=== PATIENT | male | born 1995 | race Caucasian/White ===

== ENCOUNTER 2017-06-16 19:57 | Emergency (ER) | payer OTHER ==
--- NOTE | 2017-06-16 21:55 | ED ---
Throat Pain/Nasal Congestion - HPI Summary HPI Summary: 22 male presents to ED with complaints of sore throat, cough and earlier feeling like he had something stuck in his throat began this morning upon waking up. Had minor sore throat yesterday. Denies productive cough. No nasal congestion, sinus congestion or ear pain. Denies fatigue, fever/chills, n/v/d, abdominal pain, chest pain and trouble breathing. Denies difficulty swallowing, it just hurts. Has taken cough medication earlier today which gave him some relief. Denies any other complaints. No history of mono. No known sick contacts. No PMHx. FB sensation in throat has since resolved. No history of choking or FB ingestion. - History of Current Complaint Chief Complaint: EDThroatPain Time Seen by Provider: 06/16/17 21:17 Hx Obtained From: Patient Onset/Duration: Sudden Onset, Lasting Days - 1-2 Severity: Mild Associated Signs And Symptoms: Positive: Dysphagia Cough: Nonproductive - Allergies/Home Medications Allergies/Adverse Reactions: Allergies Allergy/AdvReac Type Severity Reaction Status Date / Time No Known Allergies Allergy Verified 06/16/17 20:01 PMH/Surg Hx/FS Hx/Imm Hx Endocrine/Hematology History: Denies: Hx Anticoagulant Therapy Cardiovascular History: Denies: Hx Hypertension Respiratory History: Denies: Hx Asthma - Surgical History Surgery Procedure, Year, and Place: n/a - Immunization History Immunizations Up to Date: Yes Infectious Disease History: No Infectious Disease History: Denies: Traveled Outside the [place] in Last 30 Days - Family History Known Family History: Positive: None - Social History Alcohol Use: Occasionally Substance Use Type: Reports: None Smoking Status (MU): Never Smoked Tobacco Review of Systems Constitutional: Negative Positive: Sore Throat Cardiovascular: Negative Positive: Cough Gastrointestinal: Negative Skin: Negative All Other Systems Reviewed And Are Negative: Yes Physical Exam Triage Information Reviewed: Yes Vital Signs On Initial Exam: Initial Vitals Temp Pulse Resp BP Pulse Ox 99.3 F 83 16 143/64 99 06/16/17 20:01 06/16/17 20:01 06/16/17 20:01 06/16/17 20:01 06/16/17 20:01 Vital Signs Reviewed: Yes Appearance: Positive: Well-Appearing, No Pain Distress, Well-Nourished Skin: Positive: Warm, Skin Color Reflects Adequate Perfusion, Dry. Negative: Cold, Cyanosis @, Pale, Erythema @ Head/Face: Positive: Normal Head/Face Inspection Eyes: Positive: Conjunctiva Clear ENT: Positive: Hearing grossly normal, Pharyngeal erythema, TMs normal, Tonsillar swelling, Uvula midline - airway patent, no sign of peritonsillar abscess. Negative: Nasal congestion, Nasal drainage, Tonsillar exudate Dental: Negative: Percussion Tenderness @ Neck: Positive: Supple, Nontender, No Lymphadenopathy Respiratory/Lung Sounds: Positive: Clear to Auscultation, Breath Sounds Present. Negative: Rales, Rhonchi, Wheezes Cardiovascular: Positive: Normal, RRR, Pulses are Symmetrical in both Upper and Lower Extremities. Negative: Murmur, Rub Abdomen Description: Positive: Nontender, Soft Bowel Sounds: Positive: Present Musculoskeletal: Positive: Normal, Strength/ROM Intact Neurological: Positive: Normal, Sensory/Motor Intact, Alert, Oriented to Person Place, Time Diagnostics - Vital Signs Vital Signs Temp Pulse Resp BP Pulse Ox 06/16/17 20:01 99.3 F 83 16 143/64 99 - Laboratory Lab Statement: Any lab studies that have been ordered have been reviewed, and results considered in the medical decision making process. EENT Course/Dx - Course Course Of Treatment: rapid flu and strep obtained and negative. appears to be suffering from a viral URI/pharyngitis. will treat symptomatically at this time as no concern for bacterial at this time. normal vitals and PE other than phayrngeal erythema. No other complaints at this time. Follow up [facility]. Aware of worsening signs and symptoms. patient agrees and understands plan. Increase fluid intake, salt water gargles, ibuprofen and chloraseptic spray. - Differential Diagnoses Differential Diagnoses: Pharyngitis, URI/Bronchitis - Diagnoses Provider Diagnoses: URI (upper respiratory infection), Pharyngitis Discharge - Discharge Plan Condition: Stable Disposition: HOME Patient Education Materials: Pharyngitis (ED), Upper Respiratory Infection (ED) Referrals: [facility] [Provider Group] Additional Instructions: Take ibuprofen to help with discomfort, inflammation and fever. Increase fluid intake. Get plenty of rest. Salt water gargles. Chloraseptic spray sold over the counter to help soothe sore throat. Recommend drinking tea with honey. Wash hands frequently and cover mouth when coughing. Follow up with PCP. Any new or worsening symptoms please seek medical attention promptly.
[2017-06-16 22:48] VITALS: BP 146/85
== END 2017-06-16 22:48 | disposition home or self-care (01) ==
LOC: ED 19:57
DX: J06.9 Acute upper respiratory infection, unspecified (principal); J02.9 Acute pharyngitis, unspecified
CPT/HCPCS: 87502; 87651; 99282

== ENCOUNTER → 2017-10-10 | Emergency (ER) | payer OTHER ==
--- NOTE | 2017-10-15 06:09 | ED ---
Lois Hyman Nilda, scribed for Karlos Velasquez MD on 10/10/17 at 0511 . Psychiatric Complaint - HPI Summary HPI Summary: This patient is a 22 year old M BIBA s/p acute anxiety attack minutes ago. Pt states 20 mins before ambulance arrived pt experienced sharp CP, SOB, tingling in hands, and numbness around lip, which have all resolved. Pt notes similar episode 1 month ago though today's episode was more severe. Patient reports recent decreased sleep and increased caffeine intake. Pt denies recent injury. Medications include Klonopin as needed for anxiety. Pt took 2 Klonopin today when panic attack occurred. Symptoms aggravated by stress (final exams at school ). - History Of Current Complaint Time Seen by Provider: 10/10/17 03:21 Hx Obtained From: Patient Onset/Duration: Sudden Onset, Lasting Minutes, Resolved Timing: Constant Severity Currently: None Character: Anxious Aggravating Factor(s): Recent Stress Alleviating Factor(s): Medication - Klonopin Associated Signs And Symptoms: Positive: Sleep Disturbance Related History: Positive For: Prior Psychiatric Issues Recent Stressor(s): school - Allergies/Home Medications Allergies/Adverse Reactions: Allergies Allergy/AdvReac Type Severity Reaction Status Date / Time No Known Allergies Allergy Verified 06/16/17 20:01 PMH/Surg Hx/FS Hx/Imm Hx Endocrine/Hematology History: Denies: Hx Anticoagulant Therapy Cardiovascular History: Denies: Hx Hypertension Respiratory History: Denies: Hx Asthma Psychiatric History: Reports: Hx Anxiety - Surgical History Surgery Procedure, Year, and Place: n/a Infectious Disease History: Denies: Traveled Outside the [place] in Last 30 Days - Family History Known Family History: Positive: Other - negative anxiety Negative: Cardiac Disease - Social History Occupation: Student Alcohol Use: Occasionally Substance Use Type: Reports: None Smoking Status (MU): Never Smoked Tobacco Review of Systems Positive: Chest Pain - resolved Positive: Shortness Of Breath - resolved Neurological: Other - decreased sleep Positive: Paresthesia - hands, resolved, Numbness - lips, resolved Positive: Anxious All Other Systems Reviewed And Are Negative: Yes Physical Exam - Summary Physical Exam Summary: Appearance: Well appearing, no pain distress Skin: warm, dry, reflects adequate perfusion Head/face: normal Eyes: EOMI, MICHELLE ENT: normal Neck: supple, non-tender Respiratory: CTA, breath sounds present Cardiovascular: RRR, pulses symmetrical Abdomen: non-tender, soft Bowel Sounds: present Musculoskeletal: normal, strength/ROM intact Neuro: normal, sensory motor intact, A&Ox3 Triage Information Reviewed: Yes Vital Signs Reviewed: Yes Re-Evaluation - Re-Evaluation First Eval Change: Improved Course/Dx - Course Course Of Treatment: abrupt onset of sx, now resolved. Tx symptomatically. - Differential Dx/Clinical Impression Provider Diagnosis: Panic attack Discharge - Sign-Out/Discharge Documenting (check all that apply): Discharge/Admit/Transfer - Discharge Plan Condition: Improved Disposition: HOME Referrals: No Primary Care Phys,NOPCP [Primary Care Provider] - Additional Instructions: pt left prior to discharge instructions - Billing Disposition and Condition Condition: IMPROVED Disposition: HOME The documentation as recorded by the Lois jean Nilda accurately reflects the service I personally performed and the decisions made by , Karlos Velasquez MD.
== END | disposition home or self-care (01) ==
LOC: ED 03:01
DX: F41.0 Panic disorder [episodic paroxysmal anxiety] (principal)
CPT/HCPCS: 99281

== ENCOUNTER 2019-06-22 11:21 | Emergency (ER) | payer OTHER ==
[2019-06-22 12:05] LABS: Influenza B Molecular POSITIVE (Negative)
[2019-06-22] MEDS ORDERED: Ibuprofen TAB* 600 MG PO ONE (12:58)
--- NOTE | 2019-06-22 13:00 | ED ---
Influenza-Like Illness - HPI Summary HPI Summary: Patient is a 24 y/o M presenting to the ED for influenza-like symptoms for the last 2-3 days. Patient notes fever, sore throat, chest pain, nasal congestion, cough, abdominal pain, and nausea. Patient denies vomiting, diarrhea, constipation, dysuria, or hematuria. He took ibuprofen, NyQuil, and Dayquil with some relief. He received an influenza vaccination this season. Any significant PMHx or PSHx is denied. He admits occasional alcohol use, but denies tobacco or drug use. Medications reviewed. Allergies noted. - History of Current Complaint Chief Complaint: EDFluSymptoms Time Seen by Provider: 06/22/19 12:39 Hx Obtained From: Patient Onset/Duration: Sudden Onset, Lasting Days - 2-3 days, Still Present Severity: Moderate Associated Signs & Symptoms: Fever - In vitals, 99.5 F, Cough, Sore Throat, Nasal Congestion - Allergy/Home Medications Allergies/Adverse Reactions: Allergies Allergy/AdvReac Type Severity Reaction Status Date / Time No Known Allergies Allergy Verified 06/22/19 11:36 PMH/Surg Hx/FS Hx/Imm Hx Previously Healthy: Yes Endocrine/Hematology History: Denies: Hx Anticoagulant Therapy, Hx Diabetes Cardiovascular History: Denies: Hx Hypertension Respiratory History: Denies: Hx Asthma Sensory History: Denies: Hx Legally Blind, Hx Deafness Opthamlomology History: Denies: Hx Legally Blind EENT History: Denies: Hx Deafness Psychiatric History: Reports: Hx Anxiety - Surgical History Surgical History: None Surgery Procedure, Year, and Place: n/a Infectious Disease History: No Infectious Disease History: Denies: Traveled Outside the [place] in Last 30 Days - Family History Known Family History: Positive: Other - negative anxiety Negative: Cardiac Disease - Social History Occupation: Student Lives: Alone Alcohol Use: Occasionally Hx Substance Use: No Substance Use Type: Reports: None Hx Tobacco Use: No Smoking Status (MU): Never Smoked Tobacco Review of Systems Positive: Fever - In vitals, 99.5 F Positive: Sore Throat, Other - Positive nasal congestion Positive: Chest Pain Positive: Cough Positive: Abdominal Pain, Nausea. Negative: Vomiting, Diarrhea, Other - Negative constipation Negative: dysuria, hematuria All Other Systems Reviewed And Are Negative: Yes Physical Exam - Summary Physical Exam Summary: Constitutional: Well-developed, Well-nourished, Alert. (-) Distressed Skin: Warm, Dry HENT: Normocephalic; Atraumatic Eyes: Conjunctiva normal Neck: Musculoskeletal ROM normal neck. (-) JVD, (-) Stridor, (-) Tracheal deviation Cardio: Rhythm regular, rate normal, Heart sounds normal; Intact distal pulses; Radial pulses are 2+ and symmetric. (-) Murmur Pulmonary/Chest wall: Effort normal. (-) Respiratory distress, (-) Wheezes, (-) Rales Abd: Soft, (-) tenderness, (-) Distension, (-) Guarding, (-) Rebound Musculoskeletal: (-) Edema Lymph: (-) Cervical adenopathy Neuro: Alert, Oriented x3 Psych: Mood and affect Normal Triage Information Reviewed: Yes Vital Signs On Initial Exam: Initial Vitals Temp Pulse Resp BP Pulse Ox 99.5 F 72 19 130/73 96 06/22/19 11:35 06/22/19 11:35 06/22/19 11:35 06/22/19 11:35 06/22/19 11:35 Vital Signs Reviewed: Yes Procedures - Sedation Patient Received Moderate/Deep Sedation with Procedure: No Diagnostics - Vital Signs Vital Signs Temp Pulse Resp BP Pulse Ox 06/22/19 11:35 99.5 F 72 19 130/73 96 - Laboratory Lab Results: Lab Results 06/22/19 Range/Units 11:34 Influenza A (Rapid) Not Reportable Influenza B (Rapid) Positive A (Negative) Lab Statement: Any lab studies that have been ordered have been reviewed, and results considered in the medical decision making process. - Radiology Chest X-ray Radiology Interpretation Completed By: Radiologist Summary of Radiographic Findings: Chest X-ray IMPRESSION: NO ACTIVE CARDIOPULMONARY DISEASE. Reviewed by Dr. Rodriguez. Re-Evaluation - Re-Evaluation First Eval Re-Evaluation Time: 14:26 Change: Unchanged Comment: At 14:26, patient does not want Tamiflu. Flu Symptom Course/Dx - Course Course Of Treatment: Patient is here with flulike symptoms. Patient does have a cough and chest pain so chest x-ray was ordered which shows no pneumonia. Patient was offered Tamiflu but declined. - Diagnoses Provider Diagnoses: Influenza Discharge ED - Sign-Out/Discharge Documenting (check all that apply): Patient Departure - Discharge Plan Condition: Stable Disposition: HOME Patient Education Materials: Influenza (ED) Forms: *School Release Referrals: [facility] - Richy CROWDER [Z.BUSINESS, APPLICATION, OTHER] - Additional Instructions: PLEASE RETURN TO EMERGENCY DEPARTMENT FOR SEVERE CHEST PAIN, TROUBLE BREATHING, OR ANY NEW OR WORSENING SYMPTOMS. Please follow up with your primary care physician. Please make all follow-ups in 1-3 days unless I advise you otherwise. Take Motrin or Tylenol for pain. - Billing Disposition and Condition Condition: STABLE Disposition: Home - Attestation Statements Document Initiated by Brenda: Yes Documenting Scribe: Olivia Zacarias Provider For Whom Brenda is Documenting (Include Credential): Joseph Rodriguez MD Scribe Attestation: IOlivia, scribed for Joseph Rodriguez MD on 06/22/19 at 1550. Scribe Documentation Reviewed: Yes Provider Attestation: The documentation as recorded by the Olivia jean accurately reflects the service I personally performed and the decisions made by me, Joseph Rodriguez MD Status of Scribe Document: Viewed
[2019-06-22 14:47] VITALS: BP 133/69
== END 2019-06-22 14:46 | disposition home or self-care (01) ==
LOC: ED 11:21
DX: J11.1 Influenza due to unidentified influenza virus with other respiratory manifestations (principal)
CPT/HCPCS: 71046; 99282; A9270-GY

== ENCOUNTER 2019-07-08 03:39 | Emergency (ER) | payer OTHER ==
[2019-07-08] MEDS ORDERED: Ondansetron INJ* 2 MG/ML VIAL IV ONE (03:53)
[2019-07-08] MEDS ORDERED: NS 0.9% 1000 ML** 1,000 ML IV ONE ×2 (03:53→04:48)
[2019-07-08] MEDS ORDERED: Famotidine IV* 10 MG/ML 2 ML (20 mg) IV ONE (03:53)
--- NOTE | 2019-07-08 03:56 | ED ---
Complex/Multi-Sys Presentation - HPI Summary HPI Summary: 24 year old M presenting to [facility] alone complains of hematemesis every 10-15 minutes since 2200 07/08/2019. Patient reports he can not keep liquids down, a ' tingling' sensation, dizziness, intense abdominal pain, diarrhea, and throat pain. Patient denies fever, runny nose, and cough. Patient reports having the flu two weeks ago. States he had flu two weeks ago. No SHx. No SocHx of smoking or recreational drugs but uses alcohol occasionally. The patient rates the pain 7/10 in severity. Symptoms aggravated by nothing. Symptoms alleviated by nothing. - History Of Current Complaint Chief Complaint: EDAbdPain Hx Obtained From: Patient Onset/Duration: Sudden Onset, Lasting Hours, Still Present Aggravating Factor(s): nothing Alleviating Factor(s): nothing Associated Signs And Symptoms: Positive: Vomiting - hematemesis, Diarrhea, Abdominal Pain, Other - positive- inability to retain liquids, 'tingling' sensation, throat pain, negative- runny nose. Negative: Cough, Fever - Allergies/Home Medications Allergies/Adverse Reactions: Allergies Allergy/AdvReac Type Severity Reaction Status Date / Time No Known Allergies Allergy Verified 07/08/19 03:54 PMH/Surg Hx/FS Hx/Imm Hx Endocrine/Hematology History: Denies: Hx Anticoagulant Therapy, Hx Diabetes Cardiovascular History: Denies: Hx Hypertension Respiratory History: Denies: Hx Asthma Sensory History: Denies: Hx Legally Blind, Hx Deafness Opthamlomology History: Denies: Hx Legally Blind Psychiatric History: Reports: Hx Anxiety - Surgical History Surgery Procedure, Year, and Place: n/a Infectious Disease History: No Infectious Disease History: Denies: Traveled Outside the [place] in Last 30 Days - Family History Known Family History: Positive: Other - negative anxiety Negative: Cardiac Disease - Social History Alcohol Use: Occasionally Hx Substance Use: No Substance Use Type: Reports: None Hx Tobacco Use: No Smoking Status (MU): Never Smoked Tobacco Review of Systems Negative: Fever Positive: Sore Throat. Negative: Nasal Discharge Negative: Cough Positive: Abdominal Pain, Vomiting - hematemesis, Diarrhea, Other - can not retain liquids, 'tingling sensation' Neurological/Mental Status: Other - dizziness All Other Systems Reviewed And Are Negative: Yes Physical Exam - Summary Physical Exam Summary: VITAL SIGNS: Reviewed. GENERAL: Patient is not in any acute respiratory distress. HEAD AND FACE: No signs of trauma. No ecchymosis, hematomas or skull depressions. No sinus tenderness. EYES: PERRLA, EOMI x 2, No injected conjunctiva, no nystagmus. EARS: Hearing grossly intact. Ear canals and tympanic membranes are within normal limits. MOUTH: dry oral mucosa NECK: Supple, trachea is midline, no adenopathy, no JVD, no carotid bruit, no c- spine tenderness, neck with full ROM. CHEST: Symmetric, no tenderness at palpation. LUNGS: Clear to auscultation bilaterally. No wheezing or crackles. CVS: Regular rate and rhythm, S1 and S2 present, no murmurs or gallops appreciated. ABDOMEN: some epigastric tenderness. EXTREMITIES: FROM in all major joints, no edema, no cyanosis or clubbing. NEURO: Alert and oriented x 3. No acute neurological deficits. Speech is normal and follows commands. SKIN: Dry and warm. Triage Information Reviewed: Yes Vital Signs On Initial Exam: Initial Vitals Temp Pulse Resp BP Pulse Ox 98.0 F 118 18 144/111 98 07/08/19 03:41 07/08/19 03:41 07/08/19 03:41 07/08/19 03:41 07/08/19 03:41 Vital Signs Reviewed: Yes Procedures - Sedation Patient Received Moderate/Deep Sedation with Procedure: No Diagnostics - Vital Signs Vital Signs Temp Pulse Resp BP Pulse Ox 07/08/19 03:41 98.0 F 118 18 144/111 98 - Laboratory Result Diagrams: 07/08/19 06:26 07/08/19 06:26 Lab Statement: Any lab studies that have been ordered have been reviewed, and results considered in the medical decision making process. - Radiology Abdomen x-ray Radiology Interpretation Completed By: ED Physician Summary of Radiographic Findings: Impression: abnormal bowel pattern. Pending official report. Complex Multi-Symp Course/Dx Assessment/Plan: 24 year old M presenting to [facility] alone complains of hematemesis every 10-15 minutes since 2200 07/08/2019. Patient reports he can not keep liquids down, a 'tingling' sensation, dizziness, intense abdominal pain , diarrhea, and throat pain. Patient denies fever, runny nose, and cough. Patient reports having the flu two weeks ago. States he had flu two weeks ago. No SHx. No SocHx of smoking or recreational drugs but uses alcohol occasionally. The patient rates the pain 7/10 in severity. Symptoms aggravated by nothing. Symptoms alleviated by nothing. In the ED course the patient was placed in a registered nurse cardiac telemetry, IV access was obtained, IV fluids started. He was given Zofran for nausea and Pepcid. Blood test w/o a significant abnormality except for glucose is only 2.6, absolute neutrophils of 7.2, chloride 100, anion gap is 13, BUN is 31, creatinine 1.33, glucose 153, magnesium is 1.8 and CPK is 395. Influenza A and B is negative. Abdomen x-ray impression: Normal bowel pattern. Patient was given a second liter of IVF. He is tolerating PO w/o nausea and vomiting. Repeat WBC after hydration and has improved. Patient is feeling better and tolerates po W/O any nausea or vomiting. I discussed all the findings and test results with the patient. Patient was instructed to return to the emergency room immediately if any of the symptoms return worsens. Plan of care was discussed with the patient and understands and agrees. All questions were answered at patient satisfaction. There were no further complaints or concerns. Lung exam before discharge: CTA B/L. Good air exchange. No wheezing or crackles heard. CVS: S1 and S2 present. No murmurs appreciated. Patient is alert and oriented x 3. Patient is hemodynamically stable. Patient will be discharged home with follow up PCP in the next 2-3 days - Diagnoses Provider Diagnoses: Nausea & vomiting, Dehydration Discharge ED - Sign-Out/Discharge Documenting (check all that apply): Patient Departure - discharge - Discharge Plan Condition: Stable Disposition: HOME Prescriptions: Ondansetron ODT TAB* [Zofran 4 MG Odt TAB*] 4 mg PO Q8H PRN #10 tab.odt PRN Reason: Nausea/Vomiting Patient Education Materials: Dehydration (ED), Acute Nausea and Vomiting (ED) Referrals: [facility] - Richy CROWDER [Primary Care Provider] - Additional Instructions: FOLLOW UP WITH [facility] WITHIN 2-3 DAYS. RETURN TO THE ED FOR ANY WORSENING OR NEW SYMPTOMS. - Billing Disposition and Condition Condition: STABLE Disposition: Home - Attestation Statements Document Initiated by Scribe: Yes Documenting Scribe: William Crowder Provider For Whom Brenda is Documenting (Include Credential): Dr.Walter Efrain MD Scribe Attestation: I, William Crowder, scribed for Dr.Walter Efrain MD on 07/09/19 at 2049. Scribe Documentation Reviewed: Yes Provider Attestation: The documentation as recorded by the scribe, William Crowder accurately reflects the service I personally performed and the decisions made by me, Dr.Walter Efrain MD Status of Scribe Document: Viewed
[2019-07-08 04:13] LABS: ABS Lymphocytes 0.7 10^3/ul (1.0-4.8); ABS Monocytes 0.6 10^3/ul (0-0.8); ABS Neutrophils 17.2 10^3/ul (1.5-7.7); Eosinophil % 0.1 %; Hematocrit 47 % (42-52); Hemoglobin 16.7 g/dL (14.0-18.0); Lymphocyte % 3.9 %; Mean Corpuscular HGB Conc 35 g/dL (31-36); Mean Corpuscular Hemoglobin 33 pg (27-31); Mean Corpuscular Volume 93 fL (80-94); Mean Platelet Volume 7.3 fL (7.4-10.4); Platelet Count 412 10^3/uL (150-450); Red Blood Count 5.07 10^6 /uL (4.18-5.48); Red Cell Distribution Width 13 % (10-15); White Blood Count 18.6 10^3/uL (3.5-10.8)
[2019-07-08 04:28] LABS: Albumin 5.1 g/dL (3.2-5.2); Albumin/Globulin Ratio 1.5 (1-3); BUN/Creatinine Ratio 23.3 (8-20); C Reactive Protein 1.23 mg/L (<8.01); EGFR African American 81.4 (>60); EGFR Non-African American 67.2 (>60); Globulin 3.4 g/dL (2-4); Magnesium 1.8 mg/dL (1.9-2.7); Potassium 4.6 mmol/L (3.5-5.0); Total Bilirubin 1.6 mg/dL (0.2-1.0); Total Protein 8.5 g/dL (6.4-8.9)
[2019-07-08 05:07] LABS: Influenza A Molecular Negative (Negative); Influenza B Molecular Negative (Negative)
[2019-07-08 06:42] LABS: ABS Lymphocytes 0.4 10^3/ul (1.0-4.8); ABS Monocytes 0.4 10^3/ul (0-0.8); ABS Neutrophils 13.5 10^3/ul (1.5-7.7); Eosinophil % 0.1 %; Hematocrit 43 % (42-52); Hemoglobin 15.2 g/dL (14.0-18.0); Lymphocyte % 2.9 %; Mean Corpuscular HGB Conc 35 g/dL (31-36); Mean Corpuscular Hemoglobin 33 pg (27-31); Mean Corpuscular Volume 94 fL (80-94); Mean Platelet Volume 7.6 fL (7.4-10.4); Platelet Count 303 10^3/uL (150-450); Red Blood Count 4.59 10^6 /uL (4.18-5.48); Red Cell Distribution Width 13 % (10-15); White Blood Count 14.4 10^3/uL (3.5-10.8)
[2019-07-08 06:59] LABS: BUN/Creatinine Ratio 24.4 (8-20); EGFR African American 92.5 (>60); EGFR Non-African American 76.4 (>60); Potassium 4.7 mmol/L (3.5-5.0)
[2019-07-08 07:10] VITALS: BP 146/68
== END 2019-07-08 07:08 | disposition home or self-care (01) ==
LOC: ED 03:39
DX: R11.2 Nausea with vomiting, unspecified (principal); E86.0 Dehydration
CPT/HCPCS: 36415; 74019; 80048; 80053; 82150; 82550; 83690; 83735; 85025; 86140; 96361; 96374; 96375; 99284; J2405